=== PATIENT | male | born 1975 | race Caucasian/White ===

== ENCOUNTER 2024-12-23 02:53 | Emergency (ER) | payer OTHER | END 2024-12-23 06:13 | disposition left against medical advice (07) | LOC: ER 03:06 | DX: R10.9 Unspecified abdominal pain (principal); R42 Dizziness and giddiness; R51.9 Headache, unspecified; Z53.21 Procedure and treatment not carried out due to patient leaving prior to being seen by health care provider ==

== ENCOUNTER 2024-12-29 01:47 | Emergency (ER) | payer OTHER | END 2024-12-29 02:50 | disposition left against medical advice (07) | LOC: ER 01:47 | DX: R10.9 Unspecified abdominal pain (principal); Z53.21 Procedure and treatment not carried out due to patient leaving prior to being seen by health care provider ==